=== PATIENT | male | born 1945 | race Caucasian/White ===

== ENCOUNTER 2022-04-20 10:48 | Day surgery (SDC) | payer MEDICARE, OTHER ==
[~2022-04-20] VITALS: Ht 177.8 cm; Wt 95.6 kg
[~2022-04-20 10:48] MED LIST: ASPI325 PO; ATOR40TA PO; CYCL10 PO; LISI20 PO; MELO7.5 PO; METO50ER PO; MULVITA PO; NAPR550 PO; Norco 5-325 Ta1 EACH PO; OMEP20ER PO; OXYACE10 PO; OXYACE5T PO
--- NOTE | 2022-04-20 12:00 | NUR ---
Ambulatory in Day Surgery. History, Chart, Medications and Allergies reviewed before start of procedure.Lungs clear T/O to Auscultation. Patient confirms NPO status and agrees with scheduled surgery. Pre-Op teaching done. Pt verbalizes understanding.
[2022-04-21 04:44] LABS: BASOPHILS ABSOLUTE AUTO 0.01 K/mm3 (0.00-0.23); BASOPHILS PERCENT AUTO 0 % (0-2); EOSINOPHILS PERCENT AUTO 0 % (0-6); Hematocrit 35.5 % (37.0-53.0); Hemoglobin 12.3 g/dL (13.5-17.5); IMMATURE GRAN ABSOLUTE AUTO 0.02 K/mm3 (0.00-0.10); IMMATURE GRAN PERCENT AUTO 0 % (0-1); LYMPHOCYTES ABSOLUTE AUTO 0.48 K/mm3 (0.84-5.20); LYMPHOCYTES PERCENT AUTO 7 % (21-46); MONOCYTES ABSOLUTE AUTO 0.37 K/mm3 (0.16-1.47); MONOCYTES PERCENT AUTO 5 % (4-13); Mean Corpuscular HGB 32.8 pg (26.0-34.0); Mean Corpuscular HGB Conc 34.6 g/dL (31.5-36.5); Mean Corpuscular Volume 95 fL (80-100); Mean Platelet Volume 8.7 fL (9.1-12.4); NEUTROPHILS ABSOLUTE AUTO 6.22 K/mm3 (1.96-9.15); NEUTROPHILS PERCENT AUTO 88 % (41-73); Platelet Count 191 K/mm3 (150-400); RDW Coefficient Variation 12.4 % (11.7-14.2); RDW Standard Deviation 42.8 fL (35.1-46.3); Red Blood Cell Count 3.75 M/mm3 (4.30-5.90)
[2022-04-21 05:13] LABS: Bun/Creatinine Ratio 29.4 (12.0-20.0); Calcium, Blood 8.9 mg/dL (8.5-10.1); Creatinine, Blood 0.88 mg/dL (0.60-1.20); Magnesium, Blood 2.1 mg/dL (1.6-2.4); Potassium, Blood 4.2 mmol/L (3.5-5.5)
--- NOTE | 2022-04-21 06:06 | NUR ---
SHIFT SUMMARY ASSUMED CARE AT 0200. PT RESTED MAJORITY OF SHIFT, DID NOT NEED PAIN COVERAGE OUTSIDE OF SCHEDULED MEDICATION. CALL LIGHT WITHIN REACH.
[2022-04-21] MEDS ORDERED: OXYC5 PO (07:42)
[2022-04-21] MEDS ORDERED: ASPI81CH PO (07:42)
--- NOTE | 2022-04-21 08:55 | NUR ---
04/20/22 1800 SHIFT SUMMARY PATIENT NEW ADMIT TO UNIT POD [address] SINGH. ARRIVED TO ROOM ALERT AND ORIENTED IN BED. SPINAL IN EFFECT, UNABLE TO WIGGLE TOES, ANKLES, OR MOVE LEGS. DENIED PAIN. BP HIGH, OTHER VSS. TOLERATED ORAL LIQUIDS AND REGULAR DIET. NOT UP OUT OF BED YET AND NO VOID AT END OF SHIFT. LEFT KNEE WITH AQUACEL C/D/I. POLAR PACK IN PLACE. REPORT GIVEN TO [employer]INTENA[employer]CE [employer].
--- NOTE | 2022-04-21 10:31 | NUR ---
DISCHARGE SUMMARY PATIENT ALERT AND ORIENTED. AMBULATING SBA WITH FWW IN ROOM. CLEARED PHYSICAL THERAPY THIS AM. TOLERATING REGULAR DIET AND LIQUIDS. VOIDING WELL. AQUACEL TO LEFT KNEE C/D/I. PAIN CONTROLLED WITH PO PAIN MEDS. DISCHARGE ORDERS ON CHART. DISCHARGE EDUCATION GIVEN ON INCISION CARE, ACTIVITY, AND FOLLOW UP APPTS WITH ORTHO AND PHYSICAL THERAPY. PATIENT INFORMED TO CALL DR SINGH OFFICE FOR NARCOTIC PAIN PRESCRIPTION.
== END 2022-04-21 10:20 | disposition home or self-care (01) ==
LOC: ORSCMMR 10:48 → ORD 13:30 → ORSCMMR 13:30 → SURS 15:48 → ORSCMMR 04-21 10:20
PROVIDERS: Orthopaedic Surgery
PROC: 0SRD0JA Replacement of Left Knee Joint with Synthetic Substitute, Uncemented, Open Approach (ICD-10-PCS; principal; 2022-04-20 13:30)
PROC: 8E0Y0CZ Robotic Assisted Procedure of Lower Extremity, Open Approach (ICD-10-PCS; principal; 2022-04-20 13:30)
DX: M17.12 Unilateral primary osteoarthritis, left knee (principal); I10 Essential (primary) hypertension; I25.2 Old myocardial infarction; I25.10 Atherosclerotic heart disease of native coronary artery without angina pectoris; Z87.891 Personal history of nicotine dependence; J45.909 Unspecified asthma, uncomplicated; Z79.899 Other long term (current) drug therapy; Z79.82 Long term (current) use of aspirin; Z85.46 Personal history of malignant neoplasm of prostate
CPT/HCPCS: 27447; 20985; S2900; 36415; 73560-LT; 80048; 83735; 85025; 97110; 97116; 97161; A9270; C1776; J0171; J0690; J0735; J1100; J1885; J2250; J2370; J2405; J2704; J2795; J3010; J7120